=== PATIENT | female | born 1985 | race Caucasian/White ===

== ENCOUNTER 2024-02-26 14:05 | Emergency (ER) | payer OTHER ==
[2024-02-26 14:37] VITALS: BP 114/56; PULSE 85; RESP 18; TEMP 97.8; BMI 29.5
[2024-02-26] MEDS ORDERED: KETOROLAC TROMETHAMINE 30 MG/1 ML VIAL ONE (15:44)
[2024-02-26] MEDS: KETOROLAC TROMETHAMINE 30 MG/1 ML VIAL IM ONE (15:49)
[2024-02-26 15:54] LABS: BASO % 0.6 % (0-2.0); EOS % 1.7 % (0-4.5); HEMATOCRIT 38.5 % (32.4-45.2); HEMOGLOBIN 12.8 GM/dL (10.7-15.3); MCH 28.7 pg (25.7-33.7); MCHC 33.1 g/dl (32.0-36.0); MEAN CELL VOLUME 86.8 fl (80-96); MONO % 6.3 % (3.8-10.2); NEUT % 70.4 % (42.8-82.8); PLATELET COUNT 276 10^3/uL (134-434); RBC 4.44 M/mm3 (3.60-5.2); RDW 14.6 % (11.6-15.6); WHITE BLOOD COUNT 9.1 K/mm3 (4.0-10.0)
[2024-02-26 15:55] LABS: PH,URINE 5.5 (5.0-8.0); URINE APPEARANCE CLEAR; URINE BILIRUBIN NEGATIVE (NEGATIVE); URINE COLOR DK YELLOW; URINE GLUCOSE (UA) NEGATIVE (NEGATIVE); URINE KETONE NEGATIVE (NEGATIVE); URINE LEUK ESTERASE NEGATIVE (NEGATIVE); URINE NITRITE NEGATIVE (NEGATIVE); URINE PROTEIN NEGATIVE (NEGATIVE)
[2024-02-26 15:58] LABS: HCG,QUALITATIVE URINE Negative
[2024-02-26 16:16] LABS: BLOOD UREA NITROGEN 12.5 mg/dL (7-18)
[2024-02-26 16:18] LABS: CALCIUM 9.5 mg/dL (8.5-10.1)
[2024-02-26 16:19] LABS: ALBUMIN 3.6 g/dl (3.4-5.0); CREATININE 0.7 mg/dL (0.55-1.3)
[2024-02-26 16:21] LABS: TOT PROT 7.5 g/dl (6.4-8.2)
[2024-02-26 16:24] LABS: BILIRUBIN,TOTAL 0.6 mg/dL (0.2-1)
[2024-02-26] MEDS ORDERED: SULFAMETHOXAZOLE/TRIMETHOPRIM 800MG/160MG D.S. TABLET ONE (16:43)
[2024-02-26] MEDS: SULFAMETHOXAZOLE/TRIMETHOPRIM 800MG/160MG D.S. TABLET PO ONE (16:47)
== END 2024-02-26 18:04 | disposition home or self-care (01) ==
LOC: JER 14:05
PROC: 3E0233Z Introduction of Anti-inflammatory into Muscle, Percutaneous Approach (ICD-10-PCS; principal; 2024-02-26)
DX: R10.9 Unspecified abdominal pain (principal); R30.0 Dysuria; R11.0 Nausea; M54.9 Dorsalgia, unspecified; N12 Tubulo-interstitial nephritis, not specified as acute or chronic
CPT/HCPCS: 36415; 80053; 81003; 84703; 85025; 87077; 87086; 99284-25

== ENCOUNTER 2024-08-01 07:27 | Emergency (ER) | payer OTHER ==
[2024-08-01 07:34] VITALS: BP 133/69; PULSE 79; RESP 18; TEMP 99.3; BMI 27.7
[2024-08-01] MEDS ORDERED: DIPHTH,PERTUSS(ACELL),TET 0.5 ML DISP.SYRIN IM ONE (08:13)
[2024-08-01] MEDS: DIPHTH,PERTUSS(ACELL),TET 0.5 ML DISP.SYRIN IM ONE (08:16)
[2024-08-01 08:32] LABS: BASO % 0.5 % (0-2.0); EOS % 3.2 % (0-4.5); HEMATOCRIT 36.6 % (32.4-45.2); LYMPH % 24.7 % (8-40); MCH 26.5 pg (25.7-33.7); MCHC 32.7 g/dl (32.0-36.0); MEAN PLT VOLUME 8.8 fl (7.5-11.1); MONO % 7.3 % (3.8-10.2); NEUT % 64.3 % (42.8-82.8); PLATELET COUNT 217 10^3/uL (134-434); RBC 4.52 M/mm3 (3.60-5.2); RDW 16.2 % (11.6-15.6); WHITE BLOOD COUNT 7.7 K/mm3 (4.0-10.0)
[2024-08-01 08:39] LABS: CALCIUM 9.7 mg/dL (8.5-10.1)
[2024-08-01 08:40] LABS: ALBUMIN 3.8 g/dl (3.4-5.0); BLOOD UREA NITROGEN 12.7 mg/dL (7-18)
[2024-08-01 08:43] LABS: CREATININE 0.7 mg/dL (0.55-1.3); PHOSPHOROUS 3.2 mg/dL (2.5-4.9)
[2024-08-01 08:44] LABS: BILIRUBIN,TOTAL 0.6 mg/dL (0.2-1); TOT PROT 7.6 g/dl (6.4-8.2)
[2024-08-01 12:26] LABS: HIV INTERPRETATION NEGATIVE (NEGATIVE)
== END 2024-08-01 10:49 | disposition home or self-care (01) ==
LOC: JERFT 07:27 → JER 07:27 → JERFT 10:49
PROC: 3E0234Z Introduction of Serum, Toxoid and Vaccine into Muscle, Percutaneous Approach (ICD-10-PCS; principal; 2024-08-01)
DX: S61.235A Puncture wound without foreign body of left ring finger without damage to nail, initial encounter (principal); W46.0XXA Contact with hypodermic needle, initial encounter; Z23 Encounter for immunization
CPT/HCPCS: 36415; 80053; 82465; 82977; 84100; 85025; 86704; 86803; 87340; 87389; 87517; 90715; 99284-25